=== PATIENT | female | born 1945 | race Caucasian/White ===

== ENCOUNTER 2017-01-23 23:58 | Inpatient (IN) | payer MEDICARE ==
--- NOTE | ~2017-01-23 | DS ---
Discharge Summary [facility] [address] [facility] [place]. [address] NAME: ALBERTA BURGOS : 45 STATUS : DIS IN PAT#: [id number] AGE: 71 ADM/REG DATE : 01/24/17 MR#: [id number] REPORT SERV DATE: 01/29/17 DICTATED BY: MARLINE AGUILAR DATE: 01/27/17 REPORT STATUS : Draft TRANSCRIBED BY: MODL DATE: 01/27/17 ADMISSION DATE: 01/24/2017 DISCHARGE DATE: 01/27/2017 DISCHARGE DIAGNOSES: 1. Acute exacerbation of chronic obstructive pulmonary disease, oxygen dependent. 2. Lhxcy-ev-pcwpakk systolic and diastolic congestive heart failure with left ventricular ejection fraction of 30% to 35%. 3. Chronic hypercapnic hypoxic respiratory failure. 4. Sick sinus syndrome with pacemaker. 5. Mild acute kidney injury. 6. History of migraines. 7. Questionable history of seizures. 8. History of previous coronary bypass. 9. History of major depression. 10.Old L4 compression fracture with chronic low back pain. HISTORY: The day prior to admission, the patient noticed increased shortness of breath. No increased cough. She did not have fever or sore throat. She did notice some lower extremity swelling. She had dyspnea on exertion. She had orthopnea. She had not been taking her p.r.n. Lasix much recently. In the emergency room, her B-natriuretic peptide was elevated at 1230. Her chest x-ray showed pulmonary vascular congestion. She was referred to our team for inpatient care. In the ER, they gave her Bumex IV, nitroglycerin paste, and Solu-Medrol intravenously. Our admitting partner gave her Lasix 40 mg IV every eight hours x3 doses along with some intravenous Solu-Medrol, and nebulizer therapy and doxycycline. The patient was counseled by me and our admitting partner about the importance of discontinuing smoking. She was given nicotine patch while here. She seems motivated to try to stop smoking. We also had congestive heart failure educator meet with the patient. Chest x-ray as described above showed the vascular congestion and infiltrate type change in the left lung base. Arterial blood gas on 3 L, pH 7.38, pCO2 59, PO2 82, bicarbonate 34.0. Her troponin was normal. She had an echocardiogram on 01/24/2017 with left atrium size 3.7 cm, left ventricular ejection fraction 30% to 35%, moderate diastolic dysfunction. With the above described treatment, the patient felt significantly better. She did develop some mild acute kidney injury with BUN up to 46, creatinine up to 1.36. We held her Vasotec, Lasix, and spironolactone, and at discharge her creatinine was 1.03. We will ask her PCP and circuit recorder to follow up on her renal function and her longitudinal restart of her Vasotec. The patient uses home oxygen at 3 L on a chronic basis. She states, she feels like she is back to her baseline. She is eager to go home. Home Health has been arranged for by case management. The patient did develop some oral thrush being on steroids and doxycycline. We gave her Mycelex and this was helping significantly. We are stopping her antibiotics at this point Discharge Summary [place] [id number] [place]. [address] NAME: ALBERTA BURGOS : 45 STATUS : DIS IN PAT#: [id number] AGE: 71 ADM/REG DATE : 01/24/17 MR#: [id number] REPORT SERV DATE: 01/29/17 DICTATED BY: MARLINE AGUILAR DATE: 01/27/17 REPORT STATUS : Draft TRANSCRIBED BY: KATRINA DATE: 01/27/17 in time. DISCHARGE MEDICATIONS: Aspirin 81 mg daily, Lipitor 40 mg daily, Coreg 6.25 mg b.i.d., Mycelex troches 10 mg as a sucker q.i.d. for three days for thrush, vitamin D 1000 units daily, Depakote 125 mg b.i.d. which she states she took for seizures, but the prior notes indicate it was prescribed primarily for headache, migraine variety, Prozac 40 mg daily, Flonase nasal spray daily, Singulair 10 mg daily, nicotine patch [id number], Desyrel 200 mg at bedtime which is a chronic medicine for her, Demario ZUNIGA two puffs q.i.d. p.r.n. shortness of breath when she is away from home. She also has DuoNeb to use q.i.d. p.r.n. shortness of breath when she is at home, Tylenol 650 q.6 hours p.r.n. pain, Incruse Ellipta 62.5 inhaled every day, Atrovent nasal spray p.r.n., hydrocodone 10/325, she takes a half to a whole tablet p.r.n. chronic pain, calcium [id number], Breo Ellipta 100/25 a puff daily, Lasix 20 mg she will restart on 01/29/2017, spironolactone 25 mg daily, she will restart on 01/29/2017. We are holding off the Vasotec until her primary can recheck her renal function and blood pressure at that followup visit. She should see her PCP Dr. Heather Castro in followup this coming week and with her circuit recorder, Dr. Kathi Nelson in three to four weeks and her Pulmonary Dr. Galvez in [place] in about two to three weeks. I spent 32 minutes today with the patient and with discharge planning. RSG/MODL Marline Aguilar M.D. / [id number] CC: Mitchell Alvarez M.D. Lisa Gail Carkner, M.D. Timothy Ashburn, MD
--- NOTE | ~2017-01-23 | HP ---
History And Physical [place] [address] [facility] [place]. [address] NAME: ALBERTA ENNIS : 45 STATUS : REG ER PAT#: [id number] AGE: 71 ADM/REG DATE : 01/23/17 MR#: [id number] REPORT SERV DATE: 01/24/17 DICTATED BY: SANTOS RAPP DATE: 01/24/17 REPORT STATUS : Draft TRANSCRIBED BY: MODJanet DATE: 01/24/17 DATE OF ADMISSION: 01/23/2017 POINT OF ENTRY: [facility] Emergency Department. PRIMARY EQUIPMENT MAINTENANCE ENGINEER: Kathi Nelson M.D. CHIEF COMPLAINT: Shortness of breath. HISTORY OF PRESENT ILLNESS: Ms Ennis is a 71-year-old female with a history of COPD on chronic 3 L by nasal cannula as well as chronic systolic congestive heart failure with last known ejection fraction of approximately 30% to 35%, who presents to the emergency department today with a one-day history of acute onset of shortness of breath with lower extremity edema and orthopnea. The patient states that her symptoms really began on Sunday afternoon when she noted that she was having trouble breathing. She did note some mild lower extremity edema beginning on Sunday. The patient states that her shortness of breath is primarily worse with exertion as well as upon lying flat in bed. She denied any fevers, night sweats, chills. Denied any cough or sputum production, but did endorse some wheezing. The patient states that she takes Lasix on a p.r.n. basis and has not taken any for a few weeks now. Initial evaluation in the emergency department is notable for saturating well on 3 L by nasal cannula. BNP was elevated at 1230. Chest x-ray did show some mild intravascular volume overload. ABG was well compensated. She was subsequently admitted to the Hospitalist Service for further evaluation and management. REVIEW OF SYSTEMS: Comprehensive review of systems otherwise negative unless listed in history of present illness. PREVIOUS MEDICAL HISTORY: 1. COPD, on 3 L by nasal cannula. 2. Chronic hypercarbic and hypoxic respiratory failure. 3. Chronic systolic congestive heart failure with ejection fraction of 30% to 35%. 4. Sick sinus syndrome, status post pacemaker insertion. 5. Coronary artery disease with prior coronary artery bypass grafting. 6. Depression. 7. Recurrent left-sided pleural effusion status post previous thoracentesis x2. 8. L4 compression fracture. 9. Chronic lower back pain. SURGICAL HISTORY: 1. Cholecystectomy. History And Physical [address] [address] NAME: ALBERTA ENNIS : 45 STATUS : REG ER PAT#: [id number] AGE: 71 ADM/REG DATE : 01/23/17 MR#: [id number] REPORT SERV DATE: 01/24/17 DICTATED BY: SANTOS RAPP DATE: 01/24/17 REPORT STATUS : Draft TRANSCRIBED BY: KATRINA DATE: 01/24/17 2. Abdominal hysterectomy. 3. Appendectomy. 4. CABG. 5. Pacemaker insertion. ALLERGIES: NO KNOWN DRUG ALLERGIES. HOME MEDICATIONS: Pending at the time of dictation. SOCIAL HISTORY: She is an active smoker, smoking about one to two cigarettes a day, but states that she has now quit as of today. Denies any alcohol. Denies any illicits. Currently lives with some grand children of hers. FAMILY MEDICAL HISTORY: Mother and father with diabetes. Siblings with coronary artery disease. LABS AND IMAGIN. White count is 7.5, hemoglobin is 13.0, hematocrit is 40.2, and platelet count is 212. INR 1.0. 2. Sodium is 143, potassium 4.2, chloride 102, carbon dioxide 36, BUN 15, creatinine 0.68, glucose is 132, calcium is 8.2, and magnesium is 2.4. 3. BNP is 1230. Troponin 0.03. 4. EKG per my review shows sinus tachycardia with heart rates in the low 100s. No evidence of any acute ischemia or infarction. 5. ABG; pH is 7.38, pCO2 is 59, PO2 is 82, bicarb is 34, and saturating 96% on 3 L by nasal cannula. 6. Chest x-ray per my review shows a very mild left-sided pleural effusion. The pacemaker is in place with some qakb-hq-wpniwkym intravascular volume overload. PHYSICAL EXAMINATION: VITAL SIGNS: Temperature is 97.4 degrees Fahrenheit, pulse is 119, respirations 25, saturating 100% on 3 L by nasal cannula, and blood pressure 161/97. On recheck, blood pressure is now 152/81, saturating 100% on 3 L by nasal cannula, and pulse of 87. GENERAL: The patient is awake and alert, in no acute distress. Resting comfortably in bed. She is a chronically ill-appearing cachectic elderly female in no acute distress. HEENT: Atraumatic and normocephalic. Moist mucous membranes. Pupils equal, round, reactive to light and accommodation. Extraocular eye movements are intact. No scleral icterus. NECK: No carotid bruits. Does have some mild jugular venous distention. CARDIAC: Tachycardic rate, regular rhythm. No murmurs, rubs, or gallops. Normal S1, S2. LUNGS: On oxygen, but in no respiratory distress. Does have some decreased breath sounds in the base as well as distant breath sounds throughout with some faint inspiratory wheezes in the bilateral bases. No crackles appreciated. ABDOMEN: Soft, nontender, and nondistended with good bowel sounds. No rebound, guarding, or rigidity. EXTREMITIES: Warm and perfused. No cyanosis or clubbing. Does have some very mild bilateral pedal edema. SKIN: Warm and dry. History And Physical [address] [address] NAME: ALBERTA ENNIS : 45 STATUS : REG ER PAT#: [id number] AGE: 71 ADM/REG DATE : 01/23/17 MR#: [id number] REPORT SERV DATE: 01/24/17 DICTATED BY: SANTOS RAPP DATE: 01/24/17 REPORT STATUS : Draft TRANSCRIBED BY: KATRINA DATE: 01/24/17 PSYCH: Affect appropriate. NEURO: Alert and oriented x3. Cranial nerves 2 through 12 grossly intact. Speech is normal. Gait is not assessed. ASSESSMENT AND PLAN: Ms Ennis is a 71-year-old female, who presents with acute onset of shortness of breath, and found to have evidence of acute chronic obstructive pulmonary disease exacerbation as well as acute on chronic systolic congestive heart failure. PROBLEM LIST: 1. Acute on chronic systolic congestive heart failure. 2. Acute COPD exacerbation. 3. Chronic hypercarbic and hypoxic respiratory failure, currently well compensated. 4. Active tobacco abuse. PLAN: 1. Acute on chronic systolic congestive heart failure. The patient has received 1 mg of IV Bumex here in the emergency department. We will continue IV Lasix over the next 24 hours. We will recheck an echocardiogram, as her last one in our system was from 2014. Place her on sodium and fluid restriction. 2. Acute COPD exacerbation. Continue IV Solu-Medrol as well as DuoNeb, Brovana, Pulmicort, and doxycycline. 3. Chronic hypoxic and hypercarbic respiratory failure. Per her ABG she appears to be well compensated at this time. We will continue to monitor. 4. Active tobacco abuse. Counseled the need for tobacco cessation. Nicotine replacement protocol. 5. DVT prophylaxis. Lovenox subcu. CODE STATUS: The patient wished to be full code. JCB/MODL Santos Rapp MD / [id number] CC: Mitchell Sanon M.D.
[~2017-01-23 23:58] MED LIST: ASAB PO; BREO ELLIPTA INH; COREG12 PO; COREG6 PO; FLONASE NAS; L20 PO; P10 PO; P5 PO; PRIN5 PO; PROVENTSOL INH; PROZAC40 MG PO; PULRESP.5 INH; SPIRIVA INH; SPIRO25 PO; TRAZ100 PO; ZOCOR40 PO
[2017-01-24 01:12] LABS: CARBOXYHEMOGLOBIN 5.1 % (0-3); INSTRUMENT SERIAL # 8087; PCO2 (CO2 TENSION) 59 MMHG (35-45); PO2 (O2 TENSION) 82 MMHG (79-93); pH 7.38 (7.37-7.43)
[2017-01-24 01:13] LABS: ALLENS TEST Pos; DEVICE NC; HEMOBLOGIN CONTENT 13.4 G/DL (12-16); METHEMOGLOBIN 0.1 % (0-3); O2 CONTENT 17.2 VOL% (18-24); OPERATOR ID 33449; SAMPLE Arterial
[2017-01-24 02:02] LABS: BASOPHILS 0.1 %; BASOPHILS ABSOLUTE 0.01 10/3/uL (0.0-0.16); EOSINOPHILS 0.9 %; EOSINOPHILS ABSOLUTE 0.07 10/3/uL (0.0-0.53); HEMATOCRIT 40.2 % (36.0-48.0); IMMATURE GRANULOCYTES 0.3 %; IMMATURE GRANULOCYTES ABSOLUTE 0.02 10/3/uL (0.0-0.11); LYMPHOCYTES 10.9 %; LYMPHOCYTES ABSOLUTE 0.82 10/3/uL (0.67-4.30); MEAN CORPUS HGB CONC 32.3 g/dL (32.0-36.0); MEAN CORPUSCULAR HEMOGLOB 31.3 pg (26.0-34.0); MEAN CORPUSCULAR VOLUME 96.6 fL (80-100); MEAN PLATELET VOLUME 8.9 fL (9.2-13.0); MONOCYTES 5.6 %; MONOCYTES ABSOLUTE 0.42 10/3/uL (0.21-1.20); NEUTROPHILS 82.2 %; PLATELET COUNT 212 10/3/uL (150-400); RBC DISTRIBUTION WIDTH 13.5 % (12.0-16.0); RED CELL COUNT 4.16 10/6/uL (4.0-5.6); WHITE BLOOD CELLS 7.5 10/3/uL (4.5-10.5)
[2017-01-24 02:06] LABS: MANUAL DIFF NO %
[2017-01-24 02:12] LABS: PARTIAL THROMBO TIME 25.2 SEC (22.5-37.2); PROTIME (NOT ORD) 12.6 SEC (12.0-14.5)
[2017-01-24 02:31] LABS: BUN (BLOOD UREA NITROGEN) 15 MG/DL (6-23); CALCIUM, SERUM 8.2 MG/DL (8.5-10.4); CHLORIDE, SERUM 102 MMOL/L (96-112); CO2 (CARBON DIOXIDE) 36 MMOL/L (24-34); CREATININE 0.68 MG/DL (0.55-1.02); GFR AFRICAN AMERICAN 102 ML/MIN (>=60); GFR NON AFRICAN AMERICAN 88 ML/MIN (>=60); POTASSIUM, SERUM 4.2 MMOL/L (3.5-5.3); SODIUM, SERUM 143 MMOL/L (135-148); TROPONIN I 0.03 NG/ML (<0.05)
[2017-01-24 02:36] LABS: CHEST PAIN PROFILE TAT 0 Hrs 33 Mins; GLUCOSE, SERUM 132 MG/DL (60-99)
[2017-01-24] MEDS ORDERED: TRAZ100 PO ×2 (03:21→15:38)
[2017-01-24] MEDS ORDERED: DEPAKOTE 125 M125 MG PO (03:21)
[2017-01-24] MEDS ORDERED: COREG6 PO ×2 (03:22→15:35)
[2017-01-24] MEDS ORDERED: VASOTEC2 (03:22)
[2017-01-24] MEDS ORDERED: BREO ELLIPTA INH ×2 (03:22→15:37)
[2017-01-24] MEDS ORDERED: INCRUSE ELLI62.5 MCG INH ×2 (03:23→15:38)
[2017-01-24] MEDS ORDERED: L20 PO ×2 (03:24→15:37)
[2017-01-24] MEDS ORDERED: SPIRO25 PO ×2 (03:24→15:38)
[2017-01-24] MEDS ORDERED: NORCO1 TAB PO ×2 (03:26→15:38)
[2017-01-24] MEDS ORDERED: LIPITOR40 (03:26)
[2017-01-24 08:15] LABS: BASOPHILS 0 %; EOSINOPHILS 0 %; HEMATOCRIT 39.4 % (36.0-48.0); HEMOGLOBIN 12.5 g/dL (12.0-16.0); IMMATURE GRANULOCYTES 0.2 %; IMMATURE GRANULOCYTES ABSOLUTE 0.01 10/3/uL (0.0-0.11); LYMPHOCYTES 6.8 %; MEAN CORPUS HGB CONC 31.7 g/dL (32.0-36.0); MEAN CORPUSCULAR HEMOGLOB 30.5 pg (26.0-34.0); MEAN CORPUSCULAR VOLUME 96.1 fL (80-100); MEAN PLATELET VOLUME 8.9 fL (9.2-13.0); MONOCYTES 0.5 %; MONOCYTES ABSOLUTE 0.02 10/3/uL (0.21-1.20); NEUTROPHILS 92.5 %; NEUTROPHILS ABSOLUTE 4.07 10/3/uL (2.02-8.40); PLATELET COUNT 214 10/3/uL (150-400); RBC DISTRIBUTION WIDTH 13.7 % (12.0-16.0)
[2017-01-24 08:16] LABS: MANUAL DIFF NO %; WHITE BLOOD CELLS 4.4 10/3/uL (4.5-10.5)
[2017-01-24] MEDS ORDERED: DUONEB INH (15:34)
[2017-01-24] MEDS ORDERED: PROZAC40 MG PO (15:35)
[2017-01-24] MEDS ORDERED: LIPITOR40 PO (15:35)
[2017-01-24] MEDS ORDERED: VASOTEC2 PO (15:35)
[2017-01-24] MEDS ORDERED: ASAB PO (15:35)
[2017-01-24] MEDS ORDERED: DEPASPRINK PO (15:35)
[2017-01-24] MEDS ORDERED: VITAMIN D1000 UNI1 PO (15:36)
[2017-01-24] MEDS ORDERED: CALCIUM PO (15:36)
[2017-01-24] MEDS ORDERED: PROAIR HFA PO (15:36)
[2017-01-24] MEDS ORDERED: FLONASE NAS (15:36)
[2017-01-24] MEDS ORDERED: ATRONASAL6 NAS (15:39)
[2017-01-24] MEDS ORDERED: SINGULAIR1 PO (15:41)
[2017-01-24 16:45] LABS: ALKALINE PHOSPHATASE 77 U/L (45-117); SGOT(AST) 9 U/L (5-40); SGPT(ALT) 8 U/L (5-65); TOTAL BILIRUBIN 0.4 MG/DL (0-1.2); TOTAL PROTEIN 7.6 G/DL (6.0-8.5)
[2017-01-24 16:47] LABS: DIRECT BILIRUBIN < 0.1 MG/DL (0.0-0.4); INDIRECT BILIRUBIN(NOT ORDER) 0.3 MG/DL (0.1-0.9); ULTRASENSITIVE TSH 0.769 MCIU/ML (0.358-3.740)
[2017-01-25 03:46] LABS: BASOPHILS 0 %; EOSINOPHILS 0 %; HEMOGLOBIN 11.1 g/dL (12.0-16.0); IMMATURE GRANULOCYTES 0.2 %; IMMATURE GRANULOCYTES ABSOLUTE 0.02 10/3/uL (0.0-0.11); LYMPHOCYTES 5.4 %; LYMPHOCYTES ABSOLUTE 0.44 10/3/uL (0.67-4.30); MEAN CORPUS HGB CONC 32.4 g/dL (32.0-36.0); MEAN CORPUSCULAR VOLUME 95.8 fL (80-100); MEAN PLATELET VOLUME 8.9 fL (9.2-13.0); MONOCYTES 1.8 %; MONOCYTES ABSOLUTE 0.15 10/3/uL (0.21-1.20); NEUTROPHILS 92.6 %; NEUTROPHILS ABSOLUTE 7.53 10/3/uL (2.02-8.40); PLATELET COUNT 193 10/3/uL (150-400); RBC DISTRIBUTION WIDTH 13.4 % (12.0-16.0); RED CELL COUNT 3.58 10/6/uL (4.0-5.6)
[2017-01-25 03:47] LABS: HEMATOCRIT 34.3 % (36.0-48.0); MANUAL DIFF NO %; WHITE BLOOD CELLS 8.1 10/3/uL (4.5-10.5)
[2017-01-25 04:01] LABS: CALCIUM, SERUM 8.4 MG/DL (8.5-10.4); CHLORIDE, SERUM 96 MMOL/L (96-112); CO2 (CARBON DIOXIDE) 38 MMOL/L (24-34); CREATININE 0.95 MG/DL (0.55-1.02); GFR AFRICAN AMERICAN 70 ML/MIN (>=60); GFR NON AFRICAN AMERICAN 60 ML/MIN (>=60); GLUCOSE, SERUM 134 MG/DL (60-99); POTASSIUM, SERUM 4.7 MMOL/L (3.5-5.3); SODIUM, SERUM 140 MMOL/L (135-148)
[2017-01-25 04:02] LABS: BUN (BLOOD UREA NITROGEN) 26 MG/DL (6-23)
[2017-01-26 07:32] LABS: BUN (BLOOD UREA NITROGEN) 46 MG/DL (6-23); CALCIUM, SERUM 7.8 MG/DL (8.5-10.4); CHLORIDE, SERUM 94 MMOL/L (96-112); CO2 (CARBON DIOXIDE) 39 MMOL/L (24-34); CREATININE 1.36 MG/DL (0.55-1.02); GFR AFRICAN AMERICAN 45 ML/MIN (>=60); GFR NON AFRICAN AMERICAN 39 ML/MIN (>=60); GLUCOSE, SERUM 88 MG/DL (60-99); SODIUM, SERUM 137 MMOL/L (135-148)
[2017-01-27 06:29] LABS: BASOPHILS 0 %; EOSINOPHILS 0 %; HEMATOCRIT 34.4 % (36.0-48.0); HEMOGLOBIN 10.8 g/dL (12.0-16.0); IMMATURE GRANULOCYTES 0.2 %; IMMATURE GRANULOCYTES ABSOLUTE 0.01 10/3/uL (0.0-0.11); LYMPHOCYTES 14.3 %; LYMPHOCYTES ABSOLUTE 0.92 10/3/uL (0.67-4.30); MEAN CORPUSCULAR HEMOGLOB 30.8 pg (26.0-34.0); MONOCYTES 7.8 %; NEUTROPHILS 77.7 %; NEUTROPHILS ABSOLUTE 5.02 10/3/uL (2.02-8.40); RBC DISTRIBUTION WIDTH 13.4 % (12.0-16.0); RED CELL COUNT 3.51 10/6/uL (4.0-5.6); WHITE BLOOD CELLS 6.5 10/3/uL (4.5-10.5)
[2017-01-27 06:30] LABS: MEAN CORPUS HGB CONC 31.4 g/dL (32.0-36.0)
[2017-01-27 06:31] LABS: MANUAL DIFF NO %; PLATELET COUNT 187 10/3/uL (150-400)
[2017-01-27 07:13] LABS: POTASSIUM, SERUM 4.6 MMOL/L (3.5-5.3); SODIUM, SERUM 139 MMOL/L (135-148)
[2017-01-27 07:16] LABS: BUN (BLOOD UREA NITROGEN) 43 MG/DL (6-23); CALCIUM, SERUM 8.1 MG/DL (8.5-10.4); CHLORIDE, SERUM 97 MMOL/L (96-112); CO2 (CARBON DIOXIDE) 36 MMOL/L (24-34); CREATININE 1.03 MG/DL (0.55-1.02); GFR AFRICAN AMERICAN 63 ML/MIN (>=60); GFR NON AFRICAN AMERICAN 55 ML/MIN (>=60); GLUCOSE, SERUM 97 MG/DL (60-99)
[2017-01-27] MEDS ORDERED: T PO (10:51)
[2017-01-27] MEDS ORDERED: HABIT14 TOP (10:52)
[2017-01-27] MEDS ORDERED: MYCELEX TROCHE10 MG PO (10:53)
== END 2017-01-27 12:44 | disposition home health service (06) | DRG 190 ==
LOC: ER 23:58 → 2SO 01-24 05:29
PROVIDERS: Hospitalist; Internal Medicine; Specialist
DX: J44.1 Chronic obstructive pulmonary disease with (acute) exacerbation (principal); I50.23 Acute on chronic systolic (congestive) heart failure; N17.9 Acute kidney failure, unspecified; J96.11 Chronic respiratory failure with hypoxia; R64 Cachexia; I49.5 Sick sinus syndrome; I95.89 Other hypotension; J96.12 Chronic respiratory failure with hypercapnia; G40.909 Epilepsy, unspecified, not intractable, without status epilepticus; B37.9 Candidiasis, unspecified; F17.210 Nicotine dependence, cigarettes, uncomplicated; F32.9 Major depressive disorder, single episode, unspecified; M54.5 Low back pain; G89.29 Other chronic pain; T38.0X5A Adverse effect of glucocorticoids and synthetic analogues, initial encounter; T36.4X5A Adverse effect of tetracyclines, initial encounter; Z95.0 Presence of cardiac pacemaker; Z88.3 Allergy status to other anti-infective agents; Z71.6 Tobacco abuse counseling; Z82.49 Family history of ischemic heart disease and other diseases of the circulatory system; Z99.81 Dependence on supplemental oxygen; Z98.890 Other specified postprocedural states
CPT/HCPCS: 36600; 71010; 80048; 80076; 82805; 83735; 83880; 84443; 84484; 85025; 85610; 85730; 93005; 94640; 96374; 96375; 99285; A9270-GY; C8929; J2920; J2930; Q9957

== ENCOUNTER 2017-04-01 20:25 | Emergency (ER) | payer MEDICARE ==
[~2017-04-01 20:25] MED LIST changes: +ATRONASAL6 NAS; +CALCIUM PO; +DEPAKOTE 125 M125 MG PO; +DEPASPRINK PO; +DUONEB INH; +HABIT14 TOP; +INCRUSE ELLI62.5 MCG INH; +LIPITOR40; +LIPITOR40 PO; +MYCELEX TROCHE10 MG PO; +NORCO1 TAB PO; +PROAIR HFA PO; +SINGULAIR1 PO; +T PO; +VASOTEC2; +VASOTEC2 PO; +VITAMIN D1000 UNI1 PO
[2017-04-01 21:02] LABS: BASOPHILS 0.4 %; BASOPHILS ABSOLUTE 0.03 10/3/uL (0.0-0.16); EOSINOPHILS 0.8 %; EOSINOPHILS ABSOLUTE 0.06 10/3/uL (0.0-0.53); IMMATURE GRANULOCYTES 0.3 %; IMMATURE GRANULOCYTES ABSOLUTE 0.02 10/3/uL (0.0-0.11); LYMPHOCYTES 17.2 %; LYMPHOCYTES ABSOLUTE 1.22 10/3/uL (0.67-4.30); MEAN CORPUSCULAR HEMOGLOB 31.7 pg (26.0-34.0); MEAN PLATELET VOLUME 8.6 fL (9.2-13.0); MONOCYTES 7.7 %; MONOCYTES ABSOLUTE 0.55 10/3/uL (0.21-1.20); NEUTROPHILS 73.6 %; NEUTROPHILS ABSOLUTE 5.23 10/3/uL (2.02-8.40); WHITE BLOOD CELLS 7.1 10/3/uL (4.5-10.5)
[2017-04-01 21:03] LABS: MANUAL DIFF NO %; MEAN CORPUSCULAR VOLUME 93.3 fL (80-100); PLATELET COUNT 244 10/3/uL (150-400); RED CELL COUNT 5.04 10/6/uL (4.0-5.6)
[2017-04-01 21:15] LABS: A/G RATIO 0.9 (0.7-1.9); ALBUMIN 3.4 G/DL (3.5-5.0); ALKALINE PHOSPHATASE 73 U/L (45-117); BUN (BLOOD UREA NITROGEN) 13 MG/DL (6-23); CHLORIDE, SERUM 99 MMOL/L (96-112); CO2 (CARBON DIOXIDE) 27 MMOL/L (24-34); GFR AFRICAN AMERICAN 86 ML/MIN (>=60); GFR NON AFRICAN AMERICAN 74 ML/MIN (>=60); GLOBULIN 3.8 G/DL (2.5-4.1); GLUCOSE, SERUM 111 MG/DL (60-99); POTASSIUM, SERUM 4.2 MMOL/L (3.5-5.3); SGOT(AST) 10 U/L (5-40); SGPT(ALT) 15 U/L (5-65); SODIUM, SERUM 134 MMOL/L (135-148); TOTAL PROTEIN 7.2 G/DL (6.0-8.5)
[2017-04-02] MEDS ORDERED: BREO ELLIPTA INH ×2 (13:46→13:56)
[2017-04-02] MEDS ORDERED: INCRUSE ELLI62.5 MCG INH ×2 (13:46→13:56)
[2017-04-02] MEDS ORDERED: NORCO1 TAB PO (13:46)
[2017-04-02] MEDS ORDERED: DEPAKOTE 125 M125 MG PO (13:47)
[2017-04-02] MEDS ORDERED: L20 PO (13:47)
[2017-04-02] MEDS ORDERED: SINGULAIR1 PO (13:48)
[2017-04-02] MEDS ORDERED: SPIRO25 PO (13:48)
[2017-04-02] MEDS ORDERED: VASOTEC2 PO (13:49)
[2017-04-02] MEDS ORDERED: ASAB PO (13:49)
[2017-04-02] MEDS ORDERED: COREG6 PO (13:49)
[2017-04-02] MEDS ORDERED: LIPITOR40 PO (13:49)
[2017-04-02] MEDS ORDERED: MONODOX100 MG PO (13:50)
[2017-04-02] MEDS ORDERED: TEARS PLUS OPH (13:51)
[2017-04-02] MEDS ORDERED: ATRONASAL6 NAS (13:51)
[2017-04-02] MEDS ORDERED: TRAZ100 PO (13:51)
[2017-04-02] MEDS ORDERED: HABIT7 TOP (13:54)
== END 2017-04-01 23:54 | disposition left against medical advice (07) ==
LOC: ER 20:25
PROVIDERS: Emergency Medicine
DX: R06.00 Dyspnea, unspecified (principal); Z53.21 Procedure and treatment not carried out due to patient leaving prior to being seen by health care provider
CPT/HCPCS: 71020; 80053; 85025; 87040; 93005

== ENCOUNTER 2017-04-02 13:32 | Inpatient (IN) | payer MEDICARE ==
--- NOTE | ~2017-04-02 | DS ---
Discharge Summary [facility] [address] [facility] [place]. [address] NAME: ALBERTA BURGOS : 45 STATUS : DIS IN PAT#: [id number] AGE: 71 ADM/REG DATE : 04/02/17 MR#: [id number] REPORT SERV DATE: 04/05/17 DICTATED BY: MARLINE AGUILAR DATE: 04/04/17 REPORT STATUS : Draft TRANSCRIBED BY: MODL DATE: 04/04/17 ADMISSION DATE: 04/02/2017 DISCHARGE DATE: 04/04/2017 DISCHARGE DIAGNOSES: 1. Acute exacerbation of oxygen-dependent chronic obstructive pulmonary disease. 2. Roben-ex-jljmfpx systolic and diastolic congestive heart failure with left ventricular ejection fraction of 30% to 35%. 3. Sick sinus syndrome with pacemaker. 4. Mild acute kidney injury. 5. History of coronary artery bypass. 6. History of migraines. 7. History of major depression. 8. History of L4 compression fracture. 9. History of previous left-sided pleural effusions. HISTORY: This patient continues to smoke, but she has cut down to one cigarette per day. She is still on oxygen 3 L nasal cannula. She presented with approximately two to three days increased shortness of breath, increased cough, increased sputum, and wheezing. She had dyspnea on exertion, orthopnea, and PND. In the emergency room, she was noted to have a B-natriuretic peptide that was abnormal at 747.3. She was referred to our team for inpatient care. The patient's cardiac troponin was less than 0.02. Her EKG showed no acute abnormalities. Chest x-ray interpreted by Radiology as having significant COPD abnormalities and previous sternotomy and pacemaker in place. No other abnormalities noted. Two blood cultures, no growth. On admission, she was given IV Lasix 20 mg every eight hours for three doses, then she was placed on 20 mg daily. She was also given Solu-Medrol intravenously, initially 60 mg every 12 hours, then converted over to oral prednisone. She was on Levaquin as well as nebulizer treatments. The patient states her respiratory status is very close to her baseline. States she feels no shortness of breath, still has some cough, less sputum, it is productive, it is clear now, it used to be green. She states she feels ready to go home and is eager to go this morning. With the diuresis, the patient's creatinine has gone up from 0.76 to 1.0 to 1.26. This has happened to her before with extra diuretics. We are therefore stopping her scheduled Lasix and holding her Vasotec and having her PCP follow up on her B metabolic profile next week in the office. DISCHARGE MEDICATIONS: Aspirin 81 mg daily, Lipitor 40 mg at bedtime (PCP to address the fact that the patient is not sure if she can afford this), Coreg 6.25 mg b.i.d., Depakote 125 mg b.i.d., Atrovent nasal spray 0.06% two sprays each nostril daily, Incruse Ellipta Discharge Summary [address] [address] NAME: ALBERTA BURGOS : 45 STATUS : DIS IN PAT#: [id number] AGE: 71 ADM/REG DATE : 04/02/17 MR#: [id number] REPORT SERV DATE: 04/05/17 DICTATED BY: MARLINE AGUILAR DATE: 04/04/17 REPORT STATUS : Draft TRANSCRIBED BY: SHREEL DATE: 04/04/17 62.5 mcg inhaled daily, Levaquin 750 mg every other day for two doses, Singulair 10 mg daily (PCP also to address the cost of this), nicotine patch 7 mg size daily, spironolactone 25 mg daily, Desyrel 200 mg at bedtime, prednisone 40 mg daily with breakfast for five days, artificial tears p.r.n., DuoNeb inhaled q.4 hours p.r.n. shortness of breath, Keeler 10/325 daily p.r.n. pain which is a chronic medicine for her, Breo Ellipta 100/25 a puff inhaled daily. I spent 39 minutes today with the patient and with her discharge plan. DICTATED BY: Mitchell Alvarez/KATRINA Marline Aguilar M.D. / [id number] CC: Mitchell Bahena, M.D. Kathi Nelson M.D. Jamie Galvez MD
--- NOTE | ~2017-04-02 | HP ---
History And Physical [place] [id number] [facility] [place]. [address] NAME: ALBERTA ENNIS : 45 STATUS : ADM IN [facility]#: [id number] AGE: 71 ADM/REG DATE : 04/02/17 MR#: [id number] REPORT SERV DATE: 04/02/17 DICTATED BY: SANTOS RAPP DATE: 04/02/17 REPORT STATUS : Draft TRANSCRIBED BY: MODJanet DATE: 04/02/17 DATE OF ADMISSION: 04/02/2017 POINT OF ENTRY: [facility] Emergency Department. PRIMARY INTERNET MARKETER: Kathi Nelson M.D. CHIEF COMPLAINT: Shortness of breath, cough, sputum production, and wheezing. HISTORY OF PRESENT ILLNESS: Ms. Ennis is a 71-year-old female with history of COPD, on 3 L nasal cannula as well as chronic systolic congestive heart failure, ejection fraction of 30% to 35% who presents to the emergency department today with a two-day history of acute onset of shortness of breath with associated cough, sputum production, and wheezing. The patient was recently admitted to the Hospitalist Service on 01/23/2017 through the 01/27/2017 for reports of shortness of breath, and found to have acute chronic obstructive pulmonary disease exacerbation as well as acute on chronic systolic congestive heart failure. The patient developed a mild acute kidney injury in the setting of IV Lasix diuresis and was discharged off her home Vasotec with instructions to follow up with her primary care physician before resuming. The patient states she had been doing well up until about three weeks ago when she developed an acute bronchitis for which she was prescribed some doxycycline. The patient states she developed the acute onset of shortness of breath yesterday. It was with associated dyspnea on exertion, orthopnea, and PND. She also reports increased cough, sputum production, and wheezing above her baseline. She denies any fevers, night sweats, chills, chest pain, palpitations, or lower extremity edema. She presented to the emergency department last night, but left before being seen given the extended wait time. Initial evaluation in the emergency room today notable for an ABG that is well compensated on her home O2 requirements, BNP mildly elevated at 747, chest x-ray concerning for some mild intravascular volume overload. She was given some Duo-nebs as well as a dose of Solu- Medrol and admitted to the Hospitalist Service. COMPREHENSIVE REVIEW OF SYSTEMS: Otherwise negative unless listed in history of present illness. PREVIOUS MEDICAL HISTORY: 1. COPD on 3 L nasal cannula. 2. Chronic systolic congestive heart failure with ejection fraction of 30% to 35%. 3. Chronic hypoxic and hypercarbic respiratory failure. 4. Sick sinus syndrome, status post pacemaker insertion. 5. Coronary artery disease with status post coronary artery bypass grafting. History And Physical [address] [address] NAME: ALBERTA ENNIS : 45 STATUS : ADM IN [facility]#: [id number] AGE: 71 ADM/REG DATE : 04/02/17 MR#: [id number] REPORT SERV DATE: 04/02/17 DICTATED BY: SANTOS RAPP DATE: 04/02/17 REPORT STATUS : Draft TRANSCRIBED BY: KATRINA DATE: 04/02/17 6. Depression. 7. Chronic L4 compression fracture. 8. Chronic lower back pain. 9. History of recurrent left-sided pleural effusion. 10.Active tobacco abuse. 11.History of seizure disorder. SURGICAL HISTORY: 1. Cholecystectomy. 2. Total abdominal hysterectomy. 3. Appendectomy. 4. Coronary artery bypass grafting. 5. Pacemaker. ALLERGIES: NO KNOWN DRUG ALLERGIES. HOME MEDICATIONS: 1. Artificial Tears p.r.n. 2. Aspirin 81 mg daily. 3. Atorvastatin 40 mg at bedtime. 4. Carvedilol 6.25 mg b.i.d. 5. Depakote 125 mg b.i.d. 6. Enalapril 2.5 mg daily. 7. Breo Ellipta one puff inhalation daily. 8. Breo Ellipta one puff inhalation p.r.n. 9. Lasix 20 mg daily. 10.Antelope 10/325 one tab daily p.r.n. 11.Atrovent 2 sprays nasal daily. 12.Singulair 10 mg daily. 13.Nicotine transdermal patch. 14.Aldactone 25 mg daily. 15.Trazodone 300 mg at bedtime. 16.Increase Ellipta one puff inhalation daily. 17.Increase Ellipta p.r.n. SOCIAL HISTORY: Still smoking one cigarette a day. She states that since her last admission, she has rid her house of secondhand smoke exposure. Denies any alcohol or illicits. FAMILY HISTORY: Notable for diabetes in her parents and coronary artery disease in her siblings. LABS AND IMAGIN. White count 6.9, hemoglobin is 15.4, hematocrit is 45.2, platelets 231, INR is 1.0. 2. Sodium is 132, potassium 3.9, chloride 99, carbon dioxide 30, BUN 13, creatinine 0.76, glucose is 98, calcium is 8.7, magnesium 1.9. 3. Troponin is 0.02. BNP 747. History And Physical [address] [address] NAME: ALBERTA ENNIS : 45 STATUS : ADM IN [facility]#: [id number] AGE: 71 ADM/REG DATE : 04/02/17 MR#: [id number] REPORT SERV DATE: 04/02/17 DICTATED BY: SANTOS RAPP DATE: 04/02/17 REPORT STATUS : Draft TRANSCRIBED BY: KATRINA DATE: 04/02/17 4. ABG: pH is 7.41, pCO2 is 43, pO2 of 128, bicarb is 27 saturating 98% on 3 L nasal cannula. 5. EKG per review shows normal sinus rhythm. No evidence of any acute ischemia or infarction. 6. Chest x-ray per my review shows COPD changes with hyperinflation and flattened diaphragms as well as some mild pulmonary venous congestion. PHYSICAL EXAMINATION: VITAL SIGNS: Temperature is 98.3 degrees Fahrenheit, pulse is 78, respirations 16, saturating 100% on 3 L nasal cannula. Blood pressure 132/66. On recheck, blood pressure now 160/79, pulse is 77, saturating 100% on 3 L by nasal cannula. GENERAL: The patient is awake, alert, in no acute distress. Resting comfortably. She is very frail and chronically ill-appearing female in no acute distress. HEENT: Atraumatic and normocephalic. Moist mucous membranes. Pupils are equal, round, reactive to light and accommodation. Extraocular eye movements intact. No scleral icterus. NECK: No carotid bruits. Very mild jugular venous distention. CARDIAC: Regular rate and rhythm. No murmurs, rubs, or gallops. Normal S1, S2. LUNGS: On oxygen but in no respiratory distress. She does have some decreased breath sounds in the bases as well as diffuse inspiratory rales in all lung amanda but worse so in the bases. No crackles or rhonchi appreciated. ABDOMEN: Soft, nontender, nondistended. Good bowel sounds. No rebound, guarding, or rigidity. EXTREMITIES: Extremities are thin and frail with no lower extremity edema. No cyanosis or clubbing appreciated. SKIN: Warm and dry. PSYCH: Affect appropriate. NEURO: Alert and oriented x3. Cranial nerves 2 through 12 grossly intact. Speech is normal. Gait not assessed. ASSESSMENT AND PLAN: Ms. Ennis is a 71-year-old female with history of chronic systolic congestive heart failure as well as chronic obstructive pulmonary disease on 3 L by nasal cannula who presents to the emergency department today with a two-day history of shortness of breath. PROBLEM LIST: 1. Acute on chronic systolic congestive heart failure. 2. Acute chronic obstructive pulmonary disease exacerbation. 3. Chronic hypoxic and hypercarbic respiratory failure. 4. Active tobacco abuse. 5. Hyponatremia. 6. History of coronary artery disease. PLAN: 1. Acute on chronic systolic congestive heart failure. We will place the patient on fluid and sodium restriction. We will initially diurese with 20 mg of Lasix IV q.8 hours for the first 24 hours as she does not take Lasix regularly, and she developed a mild acute kidney injury during her last admission on 40 of Lasix IV q.8 hours. We will continue History And Physical [address] [address] NAME: ALBERTA ENNIS : 45 STATUS : ADM IN [facility]#: [id number] AGE: 71 ADM/REG DATE : 04/02/17 MR#: [id number] REPORT SERV DATE: 04/02/17 DICTATED BY: SANTOS RAPP DATE: 04/02/17 REPORT STATUS : Draft TRANSCRIBED BY: MODJanet DATE: 04/02/17 the patient's home aspirin, statin, beta tamar, and FLIP inhibitor. 2. Acute COPD exacerbation. Treating with IV steroids, inhaled bronchodilators as well as antibiotics. 3. Chronic hypercarbic and hypoxic respiratory failure. Per ABG, she is currently well compensated at this time. We will continue to monitor. 4. History of coronary artery disease. The patient currently denies any chest pain. EKG is nonischemic. Troponin is negative. 5. Active tobacco abuse. Counseled on need for tobacco cessation. She states that she has since removed secondhand smoke from her house but is still trying to wean herself off the one cigarette a day that she is dependent upon. We will place the patient on nicotine replacement protocol. 6. DVT prophylaxis. Lovenox subcu. CODE STATUS: The patient wished to be full code. JCB/MODL Santos Rapp MD / [id number] CC: MD Heather Alfonso M.D. Lisa Gail Carkner, M.D.
[2017-04-02 12:09] LABS: BASOPHILS 0.4 %; BASOPHILS ABSOLUTE 0.03 10/3/uL (0.0-0.16); EOSINOPHILS 1.2 %; EOSINOPHILS ABSOLUTE 0.08 10/3/uL (0.0-0.53); HEMATOCRIT 45.2 % (36.0-48.0); HEMOGLOBIN 15.4 g/dL (12.0-16.0); IMMATURE GRANULOCYTES 0.1 %; IMMATURE GRANULOCYTES ABSOLUTE 0.01 10/3/uL (0.0-0.11); LYMPHOCYTES 16.4 %; LYMPHOCYTES ABSOLUTE 1.12 10/3/uL (0.67-4.30); MANUAL DIFF NO %; MEAN CORPUS HGB CONC 34.1 g/dL (32.0-36.0); MEAN CORPUSCULAR HEMOGLOB 31.4 pg (26.0-34.0); MEAN CORPUSCULAR VOLUME 92.2 fL (80-100); MEAN PLATELET VOLUME 8.7 fL (9.2-13.0); MONOCYTES 7.4 %; MONOCYTES ABSOLUTE 0.51 10/3/uL (0.21-1.20); NEUTROPHILS 74.5 %; PLATELET COUNT 231 10/3/uL (150-400); RBC DISTRIBUTION WIDTH 14.2 % (12.0-16.0); WHITE BLOOD CELLS 6.9 10/3/uL (4.5-10.5)
[2017-04-02 12:16] LABS: PARTIAL THROMBO TIME 25.8 SEC (22.5-37.2); PROTIME (NOT ORD) 12.9 SEC (12.0-14.5)
[2017-04-02 13:13] LABS: BUN (BLOOD UREA NITROGEN) 13 MG/DL (6-23); CALCIUM, SERUM 8.7 MG/DL (8.5-10.4); CHEST PAIN PROFILE TAT 0 Hrs 21 Mins; CHLORIDE, SERUM 99 MMOL/L (96-112); CO2 (CARBON DIOXIDE) 30 MMOL/L (24-34); CREATININE 0.76 MG/DL (0.55-1.02); GFR AFRICAN AMERICAN 91 ML/MIN (>=60); GFR NON AFRICAN AMERICAN 79 ML/MIN (>=60); GLUCOSE, SERUM 98 MG/DL (60-99); POTASSIUM, SERUM 3.9 MMOL/L (3.5-5.3); SODIUM, SERUM 132 MMOL/L (135-148); TROPONIN I <0.02 NG/ML (<0.05)
[2017-04-02] MEDS ORDERED: BREO ELLIPTA INH ×2 (13:46→13:56)
[2017-04-02] MEDS ORDERED: NORCO1 TAB PO (13:46)
[2017-04-02] MEDS ORDERED: INCRUSE ELLI62.5 MCG INH ×2 (13:46→13:56)
[2017-04-02] MEDS ORDERED: DEPAKOTE 125 M125 MG PO (13:47)
[2017-04-02] MEDS ORDERED: L20 PO (13:47)
[2017-04-02] MEDS ORDERED: SPIRO25 PO (13:48)
[2017-04-02] MEDS ORDERED: SINGULAIR1 PO (13:48)
[2017-04-02] MEDS ORDERED: VASOTEC2 PO (13:49)
[2017-04-02] MEDS ORDERED: ASAB PO (13:49)
[2017-04-02] MEDS ORDERED: COREG6 PO (13:49)
[2017-04-02] MEDS ORDERED: LIPITOR40 PO (13:49)
[2017-04-02] MEDS ORDERED: MONODOX100 MG PO (13:50)
[2017-04-02] MEDS ORDERED: ATRONASAL6 NAS (13:51)
[2017-04-02] MEDS ORDERED: TRAZ100 PO (13:51)
[2017-04-02] MEDS ORDERED: TEARS PLUS OPH (13:51)
[2017-04-02] MEDS ORDERED: HABIT7 TOP (13:54)
[2017-04-02 14:00] LABS: ALLENS TEST Pos; BE (BASE EXCESS) 1.8 MEQ/L (0 +/- 2.5); CARBOXYHEMOGLOBIN 8.2 % (0-3); HCO3 (ACTUAL BICARBONATE) 26.8 MEQ/L (23-27); HEMOBLOGIN CONTENT 15.1 G/DL (12-16); INSTRUMENT SERIAL # 8087; METHEMOGLOBIN 0.2 % (0-3); O2 CONTENT 19.3 VOL% (18-24); OPERATOR ID 18801; PCO2 (CO2 TENSION) 43 MMHG (35-45); PO2 (O2 TENSION) 128 MMHG (79-93); SAMPLE Arterial; pH 7.41 (7.37-7.43)
[2017-04-03 06:10] LABS: BASOPHILS 0 %; EOSINOPHILS 0 %; HEMATOCRIT 41.8 % (36.0-48.0); LYMPHOCYTES 14.7 %; LYMPHOCYTES ABSOLUTE 0.45 10/3/uL (0.67-4.30); MANUAL DIFF NO %; MEAN CORPUS HGB CONC 33.5 g/dL (32.0-36.0); MEAN CORPUSCULAR HEMOGLOB 31.3 pg (26.0-34.0); MEAN CORPUSCULAR VOLUME 93.5 fL (80-100); MEAN PLATELET VOLUME 8.7 fL (9.2-13.0); MONOCYTES 3.3 %; NEUTROPHILS ABSOLUTE 2.52 10/3/uL (2.02-8.40); PLATELET COUNT 204 10/3/uL (150-400); RBC DISTRIBUTION WIDTH 13.8 % (12.0-16.0); RED CELL COUNT 4.47 10/6/uL (4.0-5.6); WHITE BLOOD CELLS 3.1 10/3/uL (4.5-10.5)
[2017-04-03 06:27] LABS: BUN (BLOOD UREA NITROGEN) 18 MG/DL (6-23); CALCIUM, SERUM 8.9 MG/DL (8.5-10.4); CHLORIDE, SERUM 95 MMOL/L (96-112); CO2 (CARBON DIOXIDE) 31 MMOL/L (24-34); GFR AFRICAN AMERICAN 66 ML/MIN (>=60); GFR NON AFRICAN AMERICAN 57 ML/MIN (>=60); GLUCOSE, SERUM 120 MG/DL (60-99); POTASSIUM, SERUM 4.4 MMOL/L (3.5-5.3); SODIUM, SERUM 133 MMOL/L (135-148)
[2017-04-04 05:15] LABS: BASOPHILS 0 %; EOSINOPHILS 0 %; HEMATOCRIT 40.9 % (36.0-48.0); HEMOGLOBIN 13.6 g/dL (12.0-16.0); IMMATURE GRANULOCYTES 0.2 %; IMMATURE GRANULOCYTES ABSOLUTE 0.01 10/3/uL (0.0-0.11); LYMPHOCYTES 14.2 %; LYMPHOCYTES ABSOLUTE 0.93 10/3/uL (0.67-4.30); MEAN CORPUS HGB CONC 33.3 g/dL (32.0-36.0); MEAN CORPUSCULAR HEMOGLOB 31.9 pg (26.0-34.0); MEAN CORPUSCULAR VOLUME 95.8 fL (80-100); MEAN PLATELET VOLUME 8.7 fL (9.2-13.0); MONOCYTES 7.6 %; NEUTROPHILS ABSOLUTE 5.11 10/3/uL (2.02-8.40); PLATELET COUNT 191 10/3/uL (150-400); RBC DISTRIBUTION WIDTH 14.3 % (12.0-16.0); RED CELL COUNT 4.27 10/6/uL (4.0-5.6)
[2017-04-04 05:19] LABS: MANUAL DIFF NO %; WHITE BLOOD CELLS 6.6 10/3/uL (4.5-10.5)
[2017-04-04 05:38] LABS: CALCIUM, SERUM 8.8 MG/DL (8.5-10.4); CHLORIDE, SERUM 94 MMOL/L (96-112); CO2 (CARBON DIOXIDE) 32 MMOL/L (24-34); CREATININE 1.26 MG/DL (0.55-1.02); GFR AFRICAN AMERICAN 50 ML/MIN (>=60); GFR NON AFRICAN AMERICAN 43 ML/MIN (>=60); POTASSIUM, SERUM 3.8 MMOL/L (3.5-5.3); SODIUM, SERUM 133 MMOL/L (135-148)
[2017-04-04 05:41] LABS: BUN (BLOOD UREA NITROGEN) 39 MG/DL (6-23); GLUCOSE, SERUM 76 MG/DL (60-99); PHOSPHORUS, SERUM 4.3 MG/DL (2.5-4.5)
[2017-04-04] MEDS ORDERED: LEVAQUIN750 MG PO (10:19)
[2017-04-04] MEDS ORDERED: P20 PO (10:23)
== END 2017-04-04 12:21 | disposition home health service (06) | DRG 190 ==
LOC: ER 13:32 → 2SO 15:44
PROVIDERS: Emergency Medicine; Internal Medicine
DX: J44.1 Chronic obstructive pulmonary disease with (acute) exacerbation (principal); I50.43 Acute on chronic combined systolic (congestive) and diastolic (congestive) heart failure; N17.9 Acute kidney failure, unspecified; J96.11 Chronic respiratory failure with hypoxia; J96.12 Chronic respiratory failure with hypercapnia; M48.56XA Collapsed vertebra, not elsewhere classified, lumbar region, initial encounter for fracture; I49.5 Sick sinus syndrome; I25.10 Atherosclerotic heart disease of native coronary artery without angina pectoris; F32.9 Major depressive disorder, single episode, unspecified; G89.29 Other chronic pain; M54.9 Dorsalgia, unspecified; G40.909 Epilepsy, unspecified, not intractable, without status epilepticus; F17.210 Nicotine dependence, cigarettes, uncomplicated; Z95.0 Presence of cardiac pacemaker; Z95.1 Presence of aortocoronary bypass graft
CPT/HCPCS: 36600; 71010; 80048; 80069; 82805; 83735; 83880; 84484; 85025; 85610; 85730; 93005; 94640; 94667; 94668; 96374; 99285; A9270-GY; J1940; J1956; J2920; J2930